=== PATIENT | male | born 1960 | race Asian ===

== ENCOUNTER 2020-05-15 09:18 | Emergency (ER) | payer OTHER ==
[2020-05-15 09:38] VITALS: TEMP 97.9; BMI 27.4
[2020-05-15] MEDS ORDERED: ASPIRIN 81 MG CHEWABLE TABLETS PO ONE (10:18)
[2020-05-15] MEDS ORDERED: ASPIRIN 81 MG CHEWABLE TABLETS ONE (11:07)
[2020-05-15 11:08] LABS: BASO % 0.5 % (0-2.0); EOS % 1.9 % (0-4.5); HEMATOCRIT 47.5 % (35.4-49); HEMOGLOBIN 15.8 GM/dL (11.7-16.9); LYMPH % 22.3 % (8-40); MCH 29.1 pg (25.7-33.7); MCHC 33.2 g/dl (32.0-35.9); MEAN CELL VOLUME 87.5 fl (80-96); MEAN PLT VOLUME 8.1 fl (7.5-11.1); MONO % 7.7 % (3.8-10.2); NEUT % 67.6 % (42.8-82.8); PLATELET COUNT 232 K/MM3 (134-434); RBC 5.43 M/mm3 (4.00-5.60); RDW 12.5 % (11.9-15.9); WHITE BLOOD COUNT 7.2 K/mm3 (4.0-10.0)
[2020-05-15 11:16] LABS: INR 0.93 (0.83-1.09); PROTHROMBIN TIME (PATIENT) 11.5 SEC (9.7-13.0)
[2020-05-15 11:19] LABS: ACTIVATED PTT 31.2 SECONDS (25.2-36.5)
[2020-05-15 11:34] LABS: CHLORIDE 102 mmol/L (98-107); POTASSIUM 4.4 mmol/L (3.5-5.1); SODIUM 136 mmol/L (136-145)
[2020-05-15 11:36] LABS: CALCIUM 9.3 mg/dL (8.5-10.1)
[2020-05-15 11:37] LABS: ALBUMIN 3.8 g/dl (3.4-5.0); ANION GAP 4 MMOL/L (8-16); CO2 29 mmol/L (21-32); GLUCOSE,RANDOM 108 mg/dL (74-106); MAGNESIUM 2.1 mg/dL (1.8-2.4)
[2020-05-15 11:40] LABS: CHOLESTEROL 212 mg/dL (50-200); CREATININE 0.9 mg/dL (0.55-1.3); SGOT/AST 19 U/L (15-37); SGPT/ALT 38 U/L (13-61); TRIGLYCERIDES 313 mg/dL (0-150)
[2020-05-15 11:41] LABS: BILIRUBIN,TOTAL 0.4 mg/dL (0.2-1); LDL CHOLESTEROL (ONLY SJRH) 133 mg/dL (5-100); TOT PROT 7.6 g/dl (6.4-8.2)
[2020-05-15 11:42] LABS: ALK PHOS 74 U/L (45-117); HDL CHOLESTEROL 51 mg/dL (40-60)
[2020-05-15 14:14] VITALS: BP 156/100; PULSE 76
== END 2020-05-15 14:09 | disposition home or self-care (01) ==
LOC: JER 09:18
DX: M79.605 Pain in left leg (principal); R07.9 Chest pain, unspecified; E78.5 Hyperlipidemia, unspecified
CPT/HCPCS: 36415; 71046-TC-FY; 80053; 80061; 82550; 83721; 83735; 84484; 85025; 85610; 85730; 93005; 93010; 93971-TC; 99284-25

== ENCOUNTER 2020-09-27 17:23 | Emergency (ER) | payer OTHER ==
[2020-09-27 17:34] VITALS: BP 154/85; PULSE 77; TEMP 97.8; BMI 27.4
[2020-09-27] MEDS ORDERED: KETOROLAC TROMETHAMINE 30 MG/1 ML VIAL IM ONE (19:18)
[2020-09-27] MEDS ORDERED: KETOROLAC TROMETHAMINE 30 MG/1 ML VIAL ONE (19:23)
[2020-09-27] MEDS ORDERED: AMOX TR/POT CLAV 875MG/125MG TABLETS (FP) PO ONE (19:23)
[2020-09-27] MEDS ORDERED: AMOX TR/POT CLAV 875MG/125MG TABLETS (FP) ONE (19:34)
== END 2020-09-27 19:45 | disposition home or self-care (01) ==
LOC: JER 17:23 → JERFT 17:23
PROC: 3E023GC Introduction of Other Therapeutic Substance into Muscle, Percutaneous Approach (ICD-10-PCS; principal; 2020-09-27)
DX: H66.001 Acute suppurative otitis media without spontaneous rupture of ear drum, right ear (principal)
CPT/HCPCS: 70450-TC; 70480-TC; 99284-25

== ENCOUNTER 2021-01-21 14:08 | Emergency (ER) | payer OTHER ==
[2021-01-21 14:20] VITALS: BP 153/93; PULSE 95; TEMP 97.8; BMI 29.0
[2021-01-21 15:30] LABS: BASO % 0.5 % (0-2.0); EOS % 2.5 % (0-4.5); HEMATOCRIT 42.4 % (35.4-49); HEMOGLOBIN 14.4 GM/dL (11.7-16.9); LYMPH % 26.8 % (8-40); MCH 29.4 pg (25.7-33.7); MEAN CELL VOLUME 86.6 fl (80-96); MEAN PLT VOLUME 7.6 fl (7.5-11.1); MONO % 8.4 % (3.8-10.2); NEUT % 61.8 % (42.8-82.8); PLATELET COUNT 206 10^3/uL (134-434); RBC 4.89 M/mm3 (4.00-5.60); RDW 12.8 % (11.9-15.9); WHITE BLOOD COUNT 6.3 K/mm3 (4.0-10.0)
[2021-01-21 15:53] LABS: CHLORIDE 105 mmol/L (98-107); SODIUM 138 mmol/L (136-145)
[2021-01-21 15:58] LABS: ALBUMIN 3.7 g/dl (3.4-5.0); ANION GAP 6 MMOL/L (8-16); CALCIUM 8.7 mg/dL (8.5-10.1); CO2 27 mmol/L (21-32)
[2021-01-21 15:59] LABS: BLOOD UREA NITROGEN 12.3 mg/dL (7-18); GLUCOSE,RANDOM 100 mg/dL (74-106)
[2021-01-21 16:01] LABS: SGPT/ALT 36 U/L (13-61)
[2021-01-21 16:02] LABS: CREATININE 0.9 mg/dL (0.55-1.3); SGOT/AST 18 U/L (15-37)
[2021-01-21 16:03] LABS: BILIRUBIN,TOTAL 0.4 mg/dL (0.2-1); TOT PROT 7.1 g/dl (6.4-8.2)
[2021-01-21 16:04] LABS: ALK PHOS 69 U/L (45-117)
[2021-01-21] MEDS ORDERED: ACETAMINOPHEN 1000 MG/100 ML VIAL (NON FORMULARY) IVPB ONE (16:15)
[2021-01-21] MEDS ORDERED: ACETAMINOPHEN INJECTION 100 ML IVPB ONE (16:24)
== END 2021-01-21 18:51 | disposition home or self-care (01) ==
LOC: JER 14:08
PROC: 3E0333Z Introduction of Anti-inflammatory into Peripheral Vein, Percutaneous Approach (ICD-10-PCS; principal; 2021-01-21)
DX: R42 Dizziness and giddiness (principal); R07.9 Chest pain, unspecified; Z72.820 Sleep deprivation
CPT/HCPCS: 36415; 71046-TC-FY; 80053; 84484; 85025; 93005; 93010; 99285-25; C9803; J0131; U0003; U0005

== ENCOUNTER 2021-01-28 09:52 | Emergency (ER) | payer OTHER ==
[2021-01-28 10:02] VITALS: BP 145/88; PULSE 89; TEMP 97.9; BMI 29.0
[2021-01-28 11:58] LABS: PH,URINE 5.5 (5.0-8.0); URINE APPEARANCE Clear; URINE BILIRUBIN Negative (NEGATIVE); URINE COLOR Yellow; URINE GLUCOSE (UA) 3+ (NEGATIVE); URINE KETONE Trace (NEGATIVE); URINE LEUK ESTERASE Negative (NEGATIVE); URINE NITRITE Negative (NEGATIVE); URINE PROTEIN Negative (NEGATIVE); URINE UROBILINOGEN 0.2 mg/dL (0.2-1.0)
[2021-01-28 12:24] LABS: BASO % 0.3 % (0-2.0); EOS % 1.3 % (0-4.5); HEMATOCRIT 43.4 % (35.4-49); HEMOGLOBIN 14.7 GM/dL (11.7-16.9); LYMPH % 17.1 % (8-40); MCH 29.8 pg (25.7-33.7); MCHC 33.9 g/dl (32.0-35.9); MEAN CELL VOLUME 87.8 fl (80-96); MEAN PLT VOLUME 7.9 fl (7.5-11.1); MONO % 5.8 % (3.8-10.2); NEUT % 75.5 % (42.8-82.8); PLATELET COUNT 212 10^3/uL (134-434); RBC 4.94 M/mm3 (4.00-5.60); RDW 12.5 % (11.9-15.9); WHITE BLOOD COUNT 7.4 K/mm3 (4.0-10.0)
[2021-01-28 12:49] LABS: ALBUMIN 3.8 g/dl (3.4-5.0); CALCIUM 8.8 mg/dL (8.5-10.1)
[2021-01-28 12:50] LABS: BLOOD UREA NITROGEN 13.1 mg/dL (7-18)
[2021-01-28 12:53] LABS: CREATININE 0.9 mg/dL (0.55-1.3)
[2021-01-28 12:54] LABS: BILIRUBIN,TOTAL 0.5 mg/dL (0.2-1); TOT PROT 7.3 g/dl (6.4-8.2)
== END 2021-01-28 15:40 | disposition left against medical advice (07) ==
LOC: JER 09:52
DX: R31.9 Hematuria, unspecified (principal); R30.0 Dysuria
CPT/HCPCS: 36415; 76775-TC; 80053; 81003; 85025; 87086; 99284-25

== ENCOUNTER 2023-03-30 14:32 | Emergency (ER) | payer OTHER ==
[2023-03-30 15:00] VITALS: RESP 18; TEMP 98.1; BMI 29.0
[2023-03-30] MEDS ORDERED: ACETAMINOPHEN 325 MG TABLET (FP) PO ONE (15:30)
[2023-03-30] MEDS ORDERED: TETRACAINE 0.5% HCL 0.6ML DROPPER.BOTTLE OS ONE (15:44)
[2023-03-30] MEDS ORDERED: ACETAMINOPHEN 325 MG TABLET (FP) ONE (15:45)
[2023-03-30] MEDS ORDERED: TETRACAINE 0.5% OPHTH SOLN 2 ML BOTTLE ONE (15:49)
[2023-03-30] MEDS ORDERED: FLUORESCEIN NA 1 EA STRIP ONE (15:50)
[2023-03-30] MEDS ORDERED: METOCLOPRAMIDE HCL 10 MG TABLET (FP) PO ONE ×2 (17:27→17:37)
[2023-03-30 18:37] VITALS: BP 135/77; PULSE 52
[2023-03-30] MEDS ORDERED: ERYTHROMYCIN 0.5% OPHTHALMIC OINTMENT 3.5 GM TUBE OS ONE (19:12)
[2023-03-30] MEDS ORDERED: ERYTHROMYCIN 0.5% OPHTHALMIC OINTMENT 3.5 GM TUBE ONE (19:15)
== END 2023-03-30 19:27 | disposition left against medical advice (07) ==
LOC: JER 14:32
DX: R51.9 Headache, unspecified (principal); R42 Dizziness and giddiness; H57.12 Ocular pain, left eye; H16.132 Photokeratitis, left eye; H53.132 Sudden visual loss, left eye; T26.42XA Burn of left eye and adnexa, part unspecified, initial encounter; W01.198A Fall on same level from slipping, tripping and stumbling with subsequent striking against other object, initial encounter; Z20.822 Contact with and (suspected) exposure to COVID-19
CPT/HCPCS: 0241U-QW; 70450-TC; 99284-25

== ENCOUNTER 2023-12-09 11:09 | Emergency (ER) | payer OTHER ==
[2023-12-09 11:19] VITALS: BP 163/83; PULSE 95; RESP 16; TEMP 97.8; BMI 29.0
[2023-12-09 12:30] LABS: BASO % 0.4 % (0-2.0); EOS % 2.5 % (0-4.5); HEMATOCRIT 44.9 % (35.4-49); HEMOGLOBIN 15.4 GM/dL (11.7-16.9); LYMPH % 16.3 % (8-40); MCH 29.3 pg (25.7-33.7); MCHC 34.2 g/dl (32.0-35.9); MEAN CELL VOLUME 85.6 fl (80-96); MEAN PLT VOLUME 7.8 fl (7.5-11.1); MONO % 7.6 % (3.8-10.2); NEUT % 73.2 % (42.8-82.8); PLATELET COUNT 180 10^3/uL (134-434); RBC 5.25 M/mm3 (4.00-5.60); RDW 12.8 % (11.9-15.9); WHITE BLOOD COUNT 7.9 K/mm3 (4.0-10.0)
[2023-12-09 12:39] LABS: INR 0.96 (0.83-1.09); PROTHROMBIN TIME (PATIENT) 11.1 SEC (9.7-13.0)
[2023-12-09 13:04] LABS: POTASSIUM 4.4 mmol/L (3.5-5.1)
[2023-12-09 13:06] LABS: CALCIUM 8.8 mg/dL (8.5-10.1)
[2023-12-09 13:07] LABS: ALBUMIN 3.6 g/dl (3.4-5.0); BLOOD UREA NITROGEN 19.9 mg/dL (7-18)
[2023-12-09 13:10] LABS: CREATININE 1.1 mg/dL (0.55-1.3)
[2023-12-09 13:11] LABS: BILIRUBIN,TOTAL 0.5 mg/dL (0.2-1); TOT PROT 7.1 g/dl (6.4-8.2)
== END 2023-12-09 14:32 | disposition home or self-care (01) ==
LOC: JER 11:09
DX: R00.2 Palpitations (principal); N64.4 Mastodynia; R07.9 Chest pain, unspecified
CPT/HCPCS: 36415; 71045-TC-FY; 80053; 84443; 84484; 85025; 85610; 93005; 93010; 99285-25